=== PATIENT | male | born 1960 | race Caucasian/White ===

== ENCOUNTER 2017-08-26 13:49 | Outpatient (CLI) ==
[2014-04-17 15:47] VITALS: BMI 33.2
--- NOTE | 2017-08-26 15:47 | DI ---
Exam: Right knee two-view History: Right knee pain Findings / impression: No acute bony or articular abnormality is seen. Mild tricompartmental osteoa rthritic change manifest by marginal osteophytosis. No obvious surrounding soft tissue abnormalities are seen.
== END 2017-08-26 13:50 | disposition home or self-care (01) ==
LOC: RAD 13:49
PROVIDERS: ATTEND Internal Medicine
DX: M25.561 Pain in right knee (principal)

== ENCOUNTER 2018-12-14 06:20 | Outpatient (CLI) ==
[2014-04-17 15:47] VITALS: BMI 33.2
--- NOTE | 2018-12-20 10:13 | ECHO2D ---
Date of Exam: 12/14/18 Ordering Physician: DR. JURGEN RYAN Room #: OP Reason for Echo: ATRIAL FIB WITH ABLATION M-Mode Normal Adult Results LV Dimensions Normal Adult Results AoV Opening excursions >1.6 >1.6 LVEDD-base- 3.5-5.8 4.0 Ao root dimensions 2.0-3.7 3.6 LVESD-base- 3.1-4.6 L. Atrium dimensions 1.9-3.8 4.9 Post. Wall thickness 0.8-1.1 1.3 IV septum (thickness) 0.7-1.2 1.3 Post. Wall excursion 0.72-1.3 NORMAL Septal motion NORMAL Systolic motion R. Ventricular cavity 1.5-2.0 NORMAL LVEF 60% 64% Paradoxical septal wall motion NORMAL 2-D : 2-D M Mode Echocardiogram was performed using apical four chamber and left parasternal long and short axis views. Mitral, tricuspid and aortic valves appear to be normal. Contractility of the left ventricle seems to be normal, so is the cavity size. Enlarged Left atrial cavity size. Aortic root appears to be normal. There is no pericardial effusion. There is no thrombus noted in the left ventricular or left aortic cavity. No mitral valve prolapse noted. M-MODE: MV: E >A WAVE AV: NORMAL TV: NORMAL PV: CHAMBER SIZE: ENLARGED LEFT ATRIAL CAVITY WALL MOTION: NORMAL PERICARDIUM: NORMAL INTERPRETATION: 1. LEFT VENTRICULAR HYPERTROPHY WITH STIFF LEFT VENTRICLE--EJECTION FRACTION 64% 2. ENLARGED LEFT ATRIAL CAVITY 4.9 CM 3. NORMAL LEFT VENTRICULAR CONTRACTILITY 4. NORMAL VALVES COPY TO DR. RUSS [employer] [facility] [facility]
== END 2018-12-14 06:21 | disposition home or self-care (01) ==
LOC: CAR 06:20
PROVIDERS: ATTEND Internal Medicine
DX: I48.91 Unspecified atrial fibrillation (principal)

== ENCOUNTER 2019-01-14 12:42 | Outpatient (CLI) ==
[2014-04-17 15:47] VITALS: BMI 33.2
--- NOTE | 2019-01-15 10:40 | MRI ---
EXAM: MRI cervical spine without IV contrast. DATE: 01/14/2019. HISTORY: Neck pain. TECHNIQUE: Sagittal and axial T1W and T2W sequences of the cervical spine along with sagittal IR and coronal T2W sequences were obtained using 1.2 Nandini magnet. No IV contrast. COMPARISON: None. FINDINGS: Minor rightward curvature the mid cervical spine is observed. No acute c-spine fracture, subluxation, osseous malignancy, or jumped facet is evident. Cervical vertebrae normal in height. B one marrow signal is overall normal. Moderate osteophytes are present at C3-4 and C4-5. Mild disc s pace narrowing is detected at C3-4. Cervical and upper thoracic spinal cord reveals no syrinx, cord edema, myelomalacia, or neoplasm. Visible brainstem is unremarkable. There is no Chiari 1 malformation. Mild sphenoid sinus mucosal d isease is demonstrated. Each parotid gland reveals substantial fatty infiltration. No submandibular gland or thyroid gland distinct neoplasm is displayed. No suspicious neck mass, cervical lymphadeno johnnie, apical lung mass, pneumonia, or pleural effusion is revealed. Segmental analysis: C2-3: Minor posterior disc/osteophyte complex (1.2 mm AP) does not contact the cord. Canal is 14.7 mm AP. Mild right and mild left foraminal stenoses due to uncinate hypertrophy and mild/moderate lef t facet arthropathy. C3-4: Broad posterior disc/osteophyte complex (3.1 mm AP) does not contact the cord rest; however, th e cord is flattened anteriorly. Canal is 9.4 mm AP. Marked bilateral foraminal stenoses due to unci pham hypertrophy and mild facet disease. C4-5: Broad posterior disc/osteophyte complex (2.6 mm AP) does not contact the cord. Canal is 11 mm AP. Marked left foraminal stenosis is due to uncinate hypertrophy and mild left facet arthropathy. C5-6: Minor posterior disc/osteophyte complex (1.4 mm AP) does not contact the cord. Canal is 12 mm AP. Mild/moderate right and moderate left foraminal stenoses are due to uncinate hypertrophy and mi ld facet arthropathy. C6-7: Normal. C7-T1: Normal. T1-2: Normal. IMPRESSIONS: 1. C-spine mild spondylosis, mild facet arthropathy, and multilevel DDD. 2. Of mild central canal stenosis at C3-4. Although there is slight cord flattening at C3-4. No co rd edema, syrinx or myelomalacia is evident. 3. Multilevel lumbar foraminal stenoses, especially bilateral C3-4 and C4-5. 4. Sphenoid sinus mild mucosal disease. 5. Bilateral parotid gland fatty infiltration.
== END 2019-01-14 12:43 | disposition home or self-care (01) ==
LOC: RAD 12:42
PROVIDERS: ATTEND Physician Assistant Surgical
DX: M54.2 Cervicalgia (principal)